=== PATIENT | female | born 1950 | race Caucasian/White ===

== ENCOUNTER → 2018-09-24 | Outpatient (CLI) | payer MEDICARE ==
[2018-09-24 12:09] LABS: Basophils % (A) 1 %; Eosinophils # (A) 0.2 k/uL (0-0.7); Eosinophils % (A) 3 %; HCT 43.1 % (34.0-46.0); HGB 13.6 gm/dL (11.4-16.0); Lymphocytes # (A) 1.8 k/uL (1.0-4.8); Lymphocytes % (A) 29 %; MCH 28.9 pg (25.0-35.0); MCHC 31.6 g/dL (31.0-37.0); MCV 91.4 fL (80.0-100.0); Mean Platelet Volume 7.8; Monocytes # (A) 0.3 k/uL (0-1.0); Monocytes % (A) 5 %; Neutrophils # (A) 3.7 k/uL (1.3-7.7); Neutrophils % (A) 60 %; Platelet Count 208 k/uL (150-450); RBC 4.72 m/uL (3.80-5.40); RDW 14.4 % (11.5-15.5); WBC 6.2 k/uL (3.8-10.6)
[2018-09-24 12:19] LABS: Potassium 4.3 mmol/L (3.5-5.1)
== END | disposition home or self-care (01) ==
LOC: LABPAT 10:56
PROVIDERS: ATTEND Orthopaedic Surgery
DX: Z01.818 Encounter for other preprocedural examination (principal); M23.91 Unspecified internal derangement of right knee
CPT/HCPCS: 36415; 80051; 85025; 93005

== ENCOUNTER 2018-10-02 06:52 | Day surgery (SDC) | payer MEDICARE ==
[2018-09-26 10:00] VITALS: BMI 25.8
--- NOTE | 2018-10-01 14:06 | HP ---
HISTORY AND PHYSICAL DATE OF SURGERY: 10/02/2018 Radha Guzman is a 68-year-old patient seen with progressive right knee pain. Treatment options were discussed. She elected to proceed with arthroscopy. Consent was obtained her. PAST MEDICAL HISTORY: Osteoporosis. PAST SURGICAL HISTORY: Spine surgery. MEDICATIONS: Vasomax. ALLERGIES: None. SOCIAL HISTORY: Denies. She denies tobacco use. PHYSICAL EXAMINATION: Right knee range of motion 0 to 130 degrees. Mild effusion. Tenderness along the medial and lateral joint lines. Positive medial Cecil's. Positive lateral Cecil's. Ligaments are stable. Hip rotation is without pain. Distal neurovascular exam is intact Right knee radiographs revealed moderate osteoarthritis. Right knee MRI revealed the lateral meniscal tear as well as osteoarthritic changes. IMPRESSION: 1. Internal derangement, right knee with lateral meniscal tear. 2. Right knee osteoarthritis. PLAN: Right knee arthroscopy with partial meniscectomy and debridement. MMODL / IJN: [id number] /
[~2018-10-02 06:52] MED LIST: DEXAMETHASONE SOD PHOSPHATE 10 MG/ML 1 ML VIAL IV ONE; LACTATED RINGERS 1,000 ML IV SCH; MIDAZOLAM 2 MG/2 ML VIAL IV PRN; ONDANSETRON 4 MG/2 ML VIAL IVP ONE; SCOPOLAMINE 1.5MG/72HR PATCH TRANSDERM ONE; ceFAZolin 1,000 MG in DEXTROSE/WATER 1 50ML.BAG IV ONE
[2018-10-02] MEDS ORDERED: ACETAMINOPHEN IV (For NPO) 1,000 MG/100 ML VIAL ONE (07:54)
[2018-10-02] MEDS ORDERED: KETOROLAC 30 MG/ML 1 ML VIAL ONE (07:54)
[2018-10-02] MEDS ORDERED: MIDAZOLAM 2 MG/2 ML VIAL ONE (07:54)
[2018-10-02] MEDS ORDERED: PROPOFOL 10 MG/ML 20 ML VIAL IV ONE (07:54)
[2018-10-02] MEDS ORDERED: LIDOCAINE 1% INJ 10MG/ML (20 ML MDV) ONE (07:54)
[2018-10-02] MEDS ORDERED: BUPIVACAIN-EPI 0.25%-1:200,000 30 ML VIAL SQ ONE (08:46)
[2018-10-02 09:11] VITALS: TEMP 97.4
--- NOTE | 2018-10-02 09:11 | P.OP ---
Date of Procedure: 10/02/18 Preoperative Diagnosis: Internal derangement right knee Postoperative Diagnosis: 1. Tear lateral meniscus right knee 2. Grade 2/3 chondromalacia medial femoral condyle right knee 3. Grade 4 chondromalacia lateral femoral condyle right knee 4. Grade 1/2 chondromalacia patella right knee 5. Reactive synovitis lateral and suprapatellar compartments right knee Procedure(s) Performed: 1. Arthroscopic partial lateral meniscectomy right knee 2. Arthroscopic chondroplasty lateral femoral condyle right knee 3. Arthroscopic microfracture lateral femoral condyle right knee 4. Arthroscopic chondroplasty medial femoral condyle right knee 5. Arthroscopic chondroplasty patella right knee 6. Arthroscopic partial synovectomy lateral and suprapatellar compartments right knee Anesthesia: MARYANNA, local Surgeon: Armani Villavicencio Estimated Blood Loss (ml): 10 Pathology: none sent Condition: stable Disposition: PACU Indications for Procedure: 68-year-old patient seen with progressive right knee pain. After treatment options were discussed, she elected to proceed with arthroscopy. Operative Findings: see description of procedure Description of Procedure: Patient was taken to the operative suite. Patient underwent a general anesthetic by the department of anesthesia. Patient was given preoperative antibiotics. The right lower extremity was placed in a well-padded arthroscopic leg son. The right leg was prepped and draped in the normal sterile orthopedic fashion. A lateral parapatellar and suprapatellar incision was made. Trochars were inserted. Arthroscopy was initiated. Suprapatellar pouch revealed diffuse thick reactive synovitis. The patellofemoral joint appeared to articulate congruently. There was 1/2 chondromalacia patella with some osteochondral flap tears present. The scope was guided into the medial gutter. No loose bodies or plica were identified. The scope was then guided into the medial compartment. A medial parapatellar incision was made. Trocar inserted followed by probe. The medial meniscus was probed and found to be intact and stable. There were grade 2/3 chondromalacia changes of the medial femoral condyle with some osteochondral flap tears. There was an area of grade 3 chondromalacia tibial plateau with a small osteochondral flap tear. There was no synovitis synovitis. I performed a chondroplasty of the medial femoral condyle and tibial plateau down to stable tissue. The residual osteochondral surface was found to be stable. Scope and probe were then guided into the intercondylar notch. Cruciates were identified, probed and found to be stable. The scope and probe were then guided into lateral compartment. Was a complex tear involving the anterior, mid body and posterior horn lateral meniscus. There were grade 4 chondral moist changes of the lateral femoral condyle and tibial plateau. There was thick reactive synovitis anteriorly. I performed a partial lateral meniscectomy down to stable tissue. I performed a chondroplasty of the lateral femoral condyle down to stable tissue. I performed a partial synovectomy decompressing the thick reactive synovitis. There was a small area of exposed bone lateral femoral condyle. I performed a microfracture there penetrating the bone resulting in some bleeding at the microfracture site. The peripheral osteochondral surface was again probed and found to be stable. The scope was in guided back into the suprapatellar compartment. I introduced a motorized shaver into the super patellar compartment. I debrided piecemeal fragments of meniscus I encountered. I performed a chondroplasty of the patella down to stable tissue. I performed a partial synovectomy decompressing reactive synovitis. The residual osteochondral surface of patella was stable. I took one more look on the entire knee, no residual debris. Instruments were now removed from the joint. The joint was infiltrated with .25% Marcaine. Steri-Strips were applied to the portal sites. Sterile dressings were applied. The patient was placed into a KIRSTEN hose. No tourniquet was utilized. The patient was awakened, transferred to a bed and taken to recovery stable satisfactory condition.
[2018-10-02] MEDS ORDERED: traMADol 50 MG TAB PO ONE (10:12)
[2018-10-02 11:15] VITALS: BP 144/80; PULSE 67; RESP 18
== END 2018-10-02 11:18 | disposition home or self-care (01) ==
LOC: OR 06:52
PROVIDERS: ATTEND Orthopaedic Surgery
DX: S83.281A Other tear of lateral meniscus, current injury, right knee, initial encounter (principal); X58.XXXA Exposure to other specified factors, initial encounter; M22.41 Chondromalacia patellae, right knee; M65.861 Other synovitis and tenosynovitis, right lower leg; M81.0 Age-related osteoporosis without current pathological fracture; Z79.899 Other long term (current) drug therapy; I10 Essential (primary) hypertension; M19.90 Unspecified osteoarthritis, unspecified site
CPT/HCPCS: 29881; 29879; J2250; J1100; J2405; J2001; J1885; J0131; J2704

== ENCOUNTER 2021-08-04 06:35 | Day surgery (SDC) | payer MEDICARE ==
[2021-08-03 10:25] VITALS: BMI 26.6
--- NOTE | 2021-08-03 19:23 | HP ---
HISTORY AND PHYSICAL DATE OF SURGERY: 08/04/2021 Radha Guzman is a 71-year-old patient seen with progressive left shoulder pain. We discussed options for treatment. She elected to proceed with left shoulder arthroscopy. Consent was obtained. Medical clearance was provided. PAST MEDICAL HISTORY: Noncontributory. PAST SURGICAL HISTORY: Spine surgery, total knee arthroplasty. DAILY MEDICATIONS: max. ALLERGIES: NONE. SOCIAL HISTORY: She denies tobacco use. PHYSICAL EVALUATION OF THE LEFT SHOULDER: Flexion 140 degrees, abduction 130 degrees, external rotation is 50 degrees with weakness. There is tenderness along the anterolateral acromion and rotator cuff insertion site. Impingement is positive at 90 degrees. Cross-body adduction sign is positive. Drop-arm sign is positive. Her distal neurovascular exam is intact. IMAGING: Radiographs of the left shoulder revealed a type 2 acromion and cystic changes of the tuberosity. Left shoulder MRI revealed osteoarthritic changes, loose bodies and a partial rotator cuff tendon tear. IMPRESSION: 1. Left shoulder impingement with possible rotator cuff tear. 2. Left shoulder glenohumeral osteoarthritis with loose bodies. PLAN: Left shoulder arthroscopy with subacromial decompression, removal loose bodies, possible arthroscopic rotator cuff repair and debridement. MMODL / IJN: [id number] /
[~2021-08-04 06:35] MED LIST changes: -DEXAMETHASONE SOD PHOSPHATE 10 MG/ML 1 ML VIAL IV ONE; +DEXAMETHASONE SOD PHOSPHATE 4 MG/ML 1 ML VIAL IV ONE; +LIDOCAINE 1% (10MG/ML) FOR IV START INTRADERMA PRN; -SCOPOLAMINE 1.5MG/72HR PATCH TRANSDERM ONE; -ceFAZolin 1,000 MG in DEXTROSE/WATER 1 50ML.BAG IV ONE
[2021-08-04] MEDS ORDERED: HYDROmorphone 0.5 MG/0.5 ML SYRINGE IVP PRN (07:00)
[2021-08-04] MEDS ORDERED: SCOPOLAMINE 1.5MG/72HR PATCH TRANSDERM ONE (07:15)
[2021-08-04] MEDS ORDERED: MIDAZOLAM 2 MG/2 ML VIAL ONE (08:40)
[2021-08-04] MEDS ORDERED: ROPIVACAINE 5 MG/ML 30 ML VIAL ONE (08:40)
[2021-08-04] MEDS ORDERED: ACETAMINOPHEN IV (For NPO) 1,000 MG/100 ML VIAL ONE (08:40)
[2021-08-04] MEDS ORDERED: LIDOCAINE 1% INJ 10MG/ML (20 ML MDV) ONE (08:40)
[2021-08-04] MEDS ORDERED: SUCCINYLCHOLINE CHLORIDE 100 MG/5 ML SYR IV ONE (08:40)
[2021-08-04] MEDS ORDERED: ePHEDrine 50 MG/ML 1 ML AMP ONE (08:40)
[2021-08-04] MEDS ORDERED: PROPOFOL 10 MG/ML 20 ML VIAL IV ONE (08:40)
[2021-08-04] MEDS ORDERED: LACTATED RINGERS 1,000 ML IV ONE ×2 (09:20)
--- NOTE | 2021-08-04 10:07 | P.OP ---
Date of Procedure: 08/04/21 Preoperative Diagnosis: Left shoulder impingement Postoperative Diagnosis: 1. Left shoulder rotator cuff tear 2. Left shoulder impingement 3. Left shoulder grade 4 chondromalacia humeral head 4. Left shoulder superficial superior labral tear 5. Left shoulder loose bodies 3 Procedure(s) Performed: 1. Left shoulder arthroscopic rotator cuff repair 2. Left shoulder arthroscopic subacromial decompression 3. Left shoulder arthroscopic debridement superficial labral tear 4. Left shoulder arthroscopic removal loose bodies 3 Implants: 15.5 Arthrex Anesthesia: GETA, regional (Interscalene block) Surgeon: Armani Villavicencio Resident Advisor #1: Sha Hamm Estimated Blood Loss (ml): 7 Pathology: none sent Condition: stable Disposition: PACU Indications for Procedure: 71-year-old patient who is seen with progressive left shoulder pain. After treatment options were discussed, she elected to proceed with arthroscopy. Operative Findings: see description of procedure Description of Procedure: Patient underwent an interscalene block by department of anesthesia. The patient was then taken to the operative suite. The patient underwent a general anesthetic by the department of anesthesia. The patient was placed into a lateral position and secured. There was appropriate padding of the bony prominence. Left shoulder was then prepped and draped in normal sterile orthopedic fashion. We placed the extremity in 10 pounds of longitudinal traction. A posterior incision was now made for a posterior working portal site. The trocar and cannula were inserted into the glenohumeral joint. Arthroscopy was initiated. Spinal needle was now inserted anteriorly, to ascertain the anterior working portal site. An incision was now made in that area, a trocar was inserted followed by a probe. There were grade 4 chondromalacia changes diffusely involving the humeral head. There were no osteochondral tears present. There was a superficial tear of the superior labrum. The biceps tendon anchor appeared stable. I encountered loose bodies within the glenohumeral joint. I removed 3 loose bodies without difficulty. I debrided that superficial labral tear getting down to stable labral tissue. The residual labrum was found to be stable. Instruments now removed from glenohumeral joint. Utilizing the posterior working portal site, the trocar and cannula were inserted into the subacromial space. Arthroscopy initiated. I made an incision 2 fingerbreadths lateral to the acromion. I introduced my trocar followed by my ArthroCare ablator. I now began ablating thick subacromial bursal tissue, which exposed the undersurface of the anterior acromion. There was diminished subacromial space. There was a very prominent anterior acromion. A motorized bur was introduced and a subacromial decompression was performed. I also excised some osteophytes off the inferior aspect of the distal clavicle. The AC joint was visualized and noted to be moderately arthritic, I did not think enough toward a Susy procedure. I turned my attention to the rotator cuff tendon/distal supraspinatus. I probed the area and found a full-thickness perforation. I debrided the margins getting down to stable tendon tissue. The defect measured approximately 11.5 cm and was freely mobile over the footprint. I abraded the footprint with a motorized bur. I passed 3 everted mattress sutures with assistance of Virgil ISAAC through good bites of rotator cuff tendon. I punched hole the footprint area for insertion of an anchor. All 6 limbs of suture were passed through the eyelet of a 5.5 Arthrex swivel lock anchor. I placed the eyelet into the pre-punch hole and held in position while Virgil ISAAC tensioned the sutures and deployed the anchor was good fixation noted. All residual suture limbs were now clipped. We had good compression of the tendon along the entire footprint. Instruments now removed from the portal sites. All portal sites were approximated with nylon suture. Sterile dressings were applied followed by a shoulder sling. Sha ISAAC assisted in this complex case. The patient was awakened, transferred to a bed, and taken to recovery in stable condition.
[2021-08-04 10:08] VITALS: TEMP 96.8
[2021-08-04 11:31] VITALS: BP 126/88; PULSE 69; RESP 18
--- NOTE | 2021-08-04 11:56 | P.ANPRN ---
Procedure Note - Anesthesia - Nerve Block Performed Left Interscalene Single Time Out Performed: Yes Date of Procedure: 08/04/21 Procedure Start Time: 08:00 Procedure Stop Time: 08:09 Location of Patient: PreOp Indication: Acute Post-Operative Pain, Requested by Surgeon Specifically requested for management of pain by DrScott: Armani Villavicencio Sedation Type: Sedate with meaningful contact maintained Preparation: Sterile Prep Position: Supine Catheter: None Needle Types: Facet Needle Gauge: 21 Ultrasound used to visualize needle placement: Yes Ultrasound used to observe medication spread: Yes Injectate: 0.5% Ropivacaine (see comment for volume) Blood Aspirated: No Pain Paresthesia on Injection Noted: No Resistance on Injection: Normal Image Stored and Saved: Yes Events: Uneventful and Well Tolerated (30cc 0.5% ropivacaine)
== END 2021-08-04 11:55 | disposition home or self-care (01) ==
LOC: OR 06:35
PROVIDERS: ATTEND Orthopaedic Surgery
DX: M75.102 Unspecified rotator cuff tear or rupture of left shoulder, not specified as traumatic (principal); M25.812 Other specified joint disorders, left shoulder; M94.212 Chondromalacia, left shoulder; S43.432A Superior glenoid labrum lesion of left shoulder, initial encounter; X58.XXXA Exposure to other specified factors, initial encounter; M25.711 Osteophyte, right shoulder; M24.012 Loose body in left shoulder; Z96.653 Presence of artificial knee joint, bilateral; Z98.890 Other specified postprocedural states; E78.5 Hyperlipidemia, unspecified; Z87.442 Personal history of urinary calculi; M19.90 Unspecified osteoarthritis, unspecified site; K21.9 Gastro-esophageal reflux disease without esophagitis; Z79.82 Long term (current) use of aspirin; Z79.83 Long term (current) use of bisphosphonates; Z79.899 Other long term (current) drug therapy; Z88.5 Allergy status to narcotic agent
CPT/HCPCS: 29826; 29827; 64415; 76942; C1713; J2250; J1100; J0690; J2405; J2001; J2795; J0131; J0330; J2704